=== PATIENT | male | born 1965 | race Caucasian/White ===

== ENCOUNTER 2018-08-15 14:05 | Inpatient (IN) | payer BC, OTHER ==
[2018-08-15] MEDS ORDERED: DILTIAZEM DRIP BOLUS FROM BAG 1 MG SOLN IV ONE (14:30)
[2018-08-15] MEDS ORDERED: SODIUM CHLORIDE 0.9% 500 ML 500 ML IV STA (14:30)
--- NOTE | 2018-08-15 14:33 | ED ---
General Adult HPI - General Chief complaint: Arrhythmia/Palpitations Stated complaint: Afib/Sent by PCP Time Seen by Provider: 08/15/18 14:05 Source: patient, RN notes reviewed Mode of arrival: ambulatory Limitations: no limitations - History of Present Illness Initial comments: This is a 52-year-old male who presents emergency department stating that he was at his primary medical care doctor's office today and they determined that he had new onset A. fib so they sent him into the emergency department immediately. Patient states he is short of breath on occasion but he assumes it secondary to the fact that he is a smoker and has some wheezing. Patient states he has had no chest pain he has not noticed his heart racing. Patient denies any swelling to the legs or calf tenderness. Patient denies any previous history of atrial fibrillation. Patient denies any heart disease in the past. Patient states he is a 6. A drinker. Patient denies any lightheadedness dizziness or near syncopal episode. - Related Data Home Medications Medication Instructions Recorded Confirmed Atorvastatin [Lipitor] 20 mg PO DAILY 08/15/18 08/15/18 Ergocalciferol (Vitamin D2) 50,000 unit PO Q7D 08/15/18 08/15/18 [Vitamin D2] Sildenafil Citrate [Viagra] 100 mg PO ONCE 08/15/18 08/15/18 Varenicline [Chantix Continuing 1 mg PO BID 08/15/18 08/15/18 Pack] amLODIPine BESYLATE/BENAZEPRIL 1 cap PO DAILY 08/15/18 08/15/18 [amLODIPine BESYLATE/BENAZEPRIL 5-20 mg] methylPREDNISolone Dose Pack See Taper PO DIRECTED 08/15/18 08/15/18 [Medrol Dose Pack] Allergies Allergy/AdvReac Type Severity Reaction Status Date / Time aspirin Allergy Rash/Hives Verified 08/15/18 15:03 Review of Systems ROS Statement: Those systems with pertinent positive or pertinent negative responses have been documented in the HPI. ROS Other: All systems not noted in ROS Statement are negative. Past Medical History Past Medical History: No Reported History History of Any Multi-Drug Resistant Organisms: None Reported Additional Past Surgical History / Comment(s): Throat operation Past Psychological History: No Psychological Hx Reported Smoking Status: Current every day smoker Past Alcohol Use History: Daily, Heavy Past Drug Use History: Marijuana General Exam - General Exam Comments Initial Comments: GENERAL: Patient is well-developed and well-nourished. Patient is nontoxic and well- hydrated and is in no acute distress. ENT: Neck is soft and supple. No significant lymphadenopathy is noted. Oropharynx is clear. Moist mucous membranes. Neck has full range of motion without eliciting any pain. EYES: The sclera were anicteric and conjunctiva were pink and moist. Extraocular movements were intact and pupils were equal round and reactive to light. Eyelids were unremarkable. PULMONARY: Patient has expiratory wheezing diffusely CARDIOVASCULAR: Patient is tachycardic with irregular heartbeat. ABDOMEN: Soft and nontender with normal bowel sounds. No palpable organomegaly was noted. There is no palpable pulsatile mass. SKIN: Skin is clear with no lesions or rashes and otherwise unremarkable. NEUROLOGIC: Patient is alert and oriented x3. Cranial nerves II through XII are grossly intact. Motor and sensory are also intact. Normal speech, volume and content. Symmetrical smile. MUSCULOSKELETAL: Normal extremities with adequate strength and full range of motion. No lower extremity swelling or edema. No calf tenderness. LYMPHATICS: No significant lymphadenopathy is noted PSYCHIATRIC: Normal psychiatric evaluation. Limitations: no limitations Course Vital Signs 08/15/18 08/15/18 14:09 15:25 Temperature 98.7 F Pulse Rate 64 99 Respiratory 18 16 Rate Blood Pressure 142/88 O2 Sat by Pulse 98 98 Oximetry Medical Decision Making - Medical Decision Making EKG shows atrial fibrillation with rapid ventricular response at 129 bpm NJ interval 220 QRS is 320 QTC is 468. Patient's EKG shows no ST segment elevation or depression or T wave abnormalities are noted Chest x-ray shows no acute abnormality. Patient's heart rate stayed around 100 after his initial presentations I didn't give him any Cardizem at this time. I did start heparin however. I spoke with Dr. Miranda. I admitted the patient I consult to cardiology - Lab Data Result diagrams: 08/15/18 14:30 08/15/18 14:30 Lab Results 08/15/18 08/15/18 08/15/18 Range/Units 14:30 14:30 14:30 WBC 8.0 (3.8-10.6) k/uL RBC 5.78 (4.30-5.90) m/uL Hgb 17.2 (13.0-17.5) gm/dL Hct 53.7 H (39.0-53.0) % MCV 92.9 (80.0-100.0) fL MCH 29.8 (25.0-35.0) pg MCHC 32.0 (31.0-37.0) g/dL RDW 12.6 (11.5-15.5) % Plt Count 213 (150-450) k/uL Neutrophils % 83 % Lymphocytes % 12 % Monocytes % 3 % Eosinophils % 1 % Basophils % 0 % Neutrophils # 6.6 (1.3-7.7) k/uL Lymphocytes # 0.9 L (1.0-4.8) k/uL Monocytes # 0.2 (0-1.0) k/uL Eosinophils # 0.1 (0-0.7) k/uL Basophils # 0.0 (0-0.2) k/uL PT (9.0-12.0) sec INR (<1.2) APTT (22.0-30.0) sec Sodium 139 (137-145) mmol/L Potassium 4.8 (3.5-5.1) mmol/L Chloride 106 (98-107) mmol/L Carbon Dioxide 23 (22-30) mmol/L Anion Gap 10 mmol/L BUN 28 H (9-20) mg/dL Creatinine 0.64 L (0.66-1.25) mg/dL Est GFR (CKD-EPI)AfAm >90 (>60 ml/min/1.73 sqM) Est GFR (CKD-EPI)NonAf >90 (>60 ml/min/1.73 sqM) Glucose 139 H (74-99) mg/dL Calcium 9.5 (8.4-10.2) mg/dL Magnesium 1.7 (1.6-2.3) mg/dL Total Bilirubin 0.5 (0.2-1.3) mg/dL AST 60 H (17-59) U/L ALT 72 (21-72) U/L Alkaline Phosphatase 150 H (38-126) U/L Total Creatine Kinase 214 H (55-170) U/L CK-MB (CK-2) 5.1 H (0.0-2.4) ng/mL CK-MB (CK-2) Rel Index 2.4 Troponin I <0.012 (0.000-0.034) ng/mL Total Protein 7.4 (6.3-8.2) g/dL Albumin 4.4 (3.5-5.0) g/dL TSH 0.487 (0.465-4.680) mIU/L Free T4 0.79 (0.78-2.19) ng/dL 08/15/18 Range/Units 14:30 WBC (3.8-10.6) k/uL RBC (4.30-5.90) m/uL Hgb (13.0-17.5) gm/dL Hct (39.0-53.0) % MCV (80.0-100.0) fL MCH (25.0-35.0) pg MCHC (31.0-37.0) g/dL RDW (11.5-15.5) % Plt Count (150-450) k/uL Neutrophils % % Lymphocytes % % Monocytes % % Eosinophils % % Basophils % % Neutrophils # (1.3-7.7) k/uL Lymphocytes # (1.0-4.8) k/uL Monocytes # (0-1.0) k/uL Eosinophils # (0-0.7) k/uL Basophils # (0-0.2) k/uL PT 10.6 (9.0-12.0) sec INR 1.1 (<1.2) APTT 25.3 (22.0-30.0) sec Sodium (137-145) mmol/L Potassium (3.5-5.1) mmol/L Chloride (98-107) mmol/L Carbon Dioxide (22-30) mmol/L Anion Gap mmol/L BUN (9-20) mg/dL Creatinine (0.66-1.25) mg/dL Est GFR (CKD-EPI)AfAm (>60 ml/min/1.73 sqM) Est GFR (CKD-EPI)NonAf (>60 ml/min/1.73 sqM) Glucose (74-99) mg/dL Calcium (8.4-10.2) mg/dL Magnesium (1.6-2.3) mg/dL Total Bilirubin (0.2-1.3) mg/dL AST (17-59) U/L ALT (21-72) U/L Alkaline Phosphatase (38-126) U/L Total Creatine Kinase (55-170) U/L CK-MB (CK-2) (0.0-2.4) ng/mL CK-MB (CK-2) Rel Index Troponin I (0.000-0.034) ng/mL Total Protein (6.3-8.2) g/dL Albumin (3.5-5.0) g/dL TSH (0.465-4.680) mIU/L Free T4 (0.78-2.19) ng/dL Disposition Clinical Impression: New onset atrial fibrillation Disposition: ADMITTED IP TO THIS HOSP Referrals: Jonnie Moore MD [Primary Care Provider] - 1-2 days Time of Disposition: 16:03
[2018-08-15 15:10] LABS: Basophils % (A) 0 %; Eosinophils # (A) 0.1 k/uL (0-0.7); Eosinophils % (A) 1 %; HCT 53.7 % (39.0-53.0); HGB 17.2 gm/dL (13.0-17.5); Lymphocytes # (A) 0.9 k/uL (1.0-4.8); Lymphocytes % (A) 12 %; MCH 29.8 pg (25.0-35.0); MCV 92.9 fL (80.0-100.0); Mean Platelet Volume 7.3; Monocytes # (A) 0.2 k/uL (0-1.0); Monocytes % (A) 3 %; Neutrophils # (A) 6.6 k/uL (1.3-7.7); Neutrophils % (A) 83 %; Platelet Count 213 k/uL (150-450); RBC 5.78 m/uL (4.30-5.90); RDW 12.6 % (11.5-15.5)
[2018-08-15 15:16] LABS: INR 1.1 (<1.2); Partial Thromboplastin Time 25.3 sec (22.0-30.0); Prothrombin Time 10.6 sec (9.0-12.0)
[2018-08-15] MEDS ORDERED: HEPARIN SODIUM,PORCINE 5,000 UNIT/ML 1 ML VIAL IV ONE (15:23)
[2018-08-15 15:24] LABS: ALT 72 U/L (21-72); AST 60 U/L (17-59); Albumin 4.4 g/dL (3.5-5.0); Alkaline Phosphatase 150 U/L (38-126); Anion Gap 10 mmol/L; Blood Urea Nitrogen 28 mg/dL (9-20); Calcium 9.5 mg/dL (8.4-10.2); Carbon Dioxide 23 mmol/L (22-30); Chloride 106 mmol/L (98-107); Glucose 139 mg/dL (74-99); Magnesium 1.7 mg/dL (1.6-2.3); Potassium 4.8 mmol/L (3.5-5.1); Sodium 139 mmol/L (137-145); Total Bilirubin 0.5 mg/dL (0.2-1.3); Total Protein 7.4 g/dL (6.3-8.2)
[2018-08-15] MEDS ORDERED: HEPARIN SOD,PORK IN 0.45% NACL 25,000 UNIT in 0.45% NACL 1 500ML.BAG IV SCH (15:30)
[2018-08-15 15:34] LABS: Creatine Kinase 214 U/L (55-170)
[2018-08-15 15:39] LABS: T4, Free (Free Thyroxine) 0.79 ng/dL (0.78-2.19)
[2018-08-15] MEDS: DILTIAZEM 50 MG in SODIUM CHLORIDE 0.9% 40 ML IV SCH (15:39)
--- NOTE | 2018-08-15 15:43 | XR ---
EXAMINATION TYPE: XR chest 2V DATE OF EXAM: 08/15/2018 COMPARISON: None INDICATION: Dysrhythmia TECHNIQUE: Frontal and lateral views of the chest are obtained. FINDINGS: The heart size is normal. The pulmonary vasculature is normal. The lungs are clear. IMPRESSION: 1. No acute pulmonary process.
[2018-08-15 15:47] LABS: Creatine Kinase MB 5.1 ng/mL (0.0-2.4); Troponin I <0.012 ng/mL (0.000-0.034)
[2018-08-15] MEDS ORDERED: NITROGLYCERIN SL TABS 0.4 MG TAB SUBLINGUAL PRN (16:03)
[2018-08-15 20:56] LABS: Creatine Kinase 276 U/L (55-170)
[2018-08-15 21:09] LABS: Creatine Kinase MB 4.8 ng/mL (0.0-2.4); Troponin I <0.012 ng/mL (0.000-0.034)
[2018-08-15] MEDS: VARENICLINE 1 MG TAB PO SCH (21:13)
[2018-08-15 23:45] LABS: Amphetamine Screen,Urine Not Detected (NotDetected); Barbiturate Screen,Urine Not Detected (NotDetected); Benzodiazepines Screen,Urine Not Detected (NotDetected); Cocaine Screen,Urine Not Detected (NotDetected); Methadone Screen, Urine Not Detected (NotDetected); Opiate Screen,Urine Not Detected (NotDetected); Oxycodone Screen, Urine Not Detected (NotDetected); Phencyclidine Screen,Urine Not Detected (NotDetected); Tricyclic Antidepressant,Urine Not Detected (NotDetected); Urn Cannabinoid Scrn Detected (NotDetected)
[2018-08-16] MEDS ORDERED: Magnesium Replacement Protocol 1 EACH MISC MISCELLANE PRN (02:43)
[2018-08-16] MEDS: DILTIAZEM 50 MG in SODIUM CHLORIDE 0.9% 40 ML IV SCH (02:44)
[2018-08-16] MEDS: MAGNESIUM SULFATE-D5W PMX 1 GM in DEXTROSE/WATER 1 100ML.BAG IVPB SCH ×2 (03:02→03:45)
[2018-08-16 03:23] LABS: Magnesium 1.7 mg/dL (1.6-2.3); Potassium 4.2 mmol/L (3.5-5.1)
[2018-08-16 03:35] LABS: Creatine Kinase 267 U/L (55-170)
[2018-08-16 03:46] LABS: Creatine Kinase MB 4.7 ng/mL (0.0-2.4); Troponin I <0.012 ng/mL (0.000-0.034)
[2018-08-16] MEDS ORDERED: amLODIPine 5 MG TAB PO SCH (09:00)
[2018-08-16] MEDS ORDERED: ASPIRIN 325 MG TAB PO SCH (09:00)
[2018-08-16] MEDS: LISINOPRIL 20 MG TAB PO SCH (10:10)
[2018-08-16] MEDS: APIXABAN 5 MG TAB PO SCH ×2 (10:11→20:25)
[2018-08-16] MEDS: METOPROLOL TARTRATE 25 MG TAB PO SCH ×2 (10:11→20:25)
[2018-08-16] MEDS: SPIRONOLACTONE 25 MG TAB PO SCH (10:11)
[2018-08-16] MEDS: FUROSEMIDE 20 MG TAB PO SCH ×2 (10:11→15:50)
[2018-08-16] MEDS: ATORVASTATIN 20 MG TAB PO SCH (10:11)
[2018-08-16] MEDS: VARENICLINE 1 MG TAB PO SCH ×2 (10:16→20:25)
--- NOTE | 2018-08-16 10:28 | CONS ---
CONSULTATION Mr. Rushing is a 52-year-old male with a history of hypertension, chronic tobacco use, chronic alcohol intake, hyperlipidemia, who yesterday was seen by his PCP because of bursitis in the right elbow and on examination was noted to be in atrial fibrillation. Patient is unaware of the palpitation and has not had any documented atrial fibrillation in the past, although no recent EKG were done. He is average in his exercise tolerance, has dyspnea on exertion. He has no palpitation. No chest pain. No peripheral edema. No PND, nor orthopnea. He had a stress test many years ago that was unremarkable. His coronary risk factors are remarkable for smoking up to 2 packs a day. He has a history of hypertension, hyperlipidemia. His mother had a myocardial infarction in her 60s. His social history, he drinks beer on a daily basis over a 6 pack. He smokes as noted. MEDICATION: Include amlodipine, benazepril 5-20 mg daily, Viagra on a p.r.n. basis, Lipitor 20 mg daily, and vitamin D. He was on methylprednisone Dosepak. REVIEW OF SYSTEMS: RESPIRATORY SYSTEM: He has no history of recent fever but he has history of obstructive lung disease, history of dyspnea on exertion. GI SYSTEM: No recent GI bleeding. No peptic ulcer disease. SYSTEM: No dysuria or hematuria. NERVOUS SYSTEM: No history of stroke or seizure. PHYSICAL EXAMINATION: He is a 52-year-old male, alert, oriented, in no apparent distress. Blood pressure 117/80 with a heart rate in the 80s. HEAD: Normocephalic. EYES: Sclerae nonicteric. NECK: Good upstroke, no bruit. LUNGS: With decreased air exchange with scattered wheezes. HEART: Irregular, regular. S1, S2. No S3. No gallop or rub appreciated. ABDOMEN: Soft, nontender, positive bowel sounds, no organomegaly. EXTREMITIES: No edema, intact distal pulses. LAB DATA: Revealed a BUN and creatinine of 28 and 0.64. Troponin less than 0.012. TSH of 4.87, cholesterol 131, LDL of 46, hemoglobin of 17.2. EKG revealed atrial fibrillation with a ventricular rate of 129 and left axis deviation. Cardiac showed inferior myocardial infarction. Chest x-ray revealed no acute infiltrate. IMPRESSION: 1. Atrial fibrillation of unknown duration, recently diagnosed patient is unaware of the arrhythmia. 2. History of hypertension. 3. Hyperlipidemia. 4. Chronic tobacco use. 5. Chronic alcohol intake. RECOMMENDATION: Preliminary report of his echocardiogram revealed a severely impaired left ventricular systolic function. I will review the results further. In the meantime, I initiate treatment with a beta juan. Continue on the LUIS MANUEL inhibitor. I will add to his regimen Aldactone as well as Lasix. I will switch him to oral anticoagulation. The importance of smoking and alcohol cessation was discussed with him. Depending on his progress, further recommendation will be made. Thank you for this consult. Will follow with you. WYATT / MERNAN: [id number] /
--- NOTE | 2018-08-16 10:36 | ECHOF ---
Referral Reason:New onset atrial fibrillation, formerly [facility], 1928–1983 MEASUREMENTS -------- HEIGHT: 182.9 cm WEIGHT: 93.0 kg BP: 117/85 RVIDd: 3.4 cm (< 3.3) IVSd: 1.1 cm (0.6 - 1.1) LVIDd: 5.4 cm (3.9 - 5.3) LVPWd: 1.1 cm (0.6 - 1.1) IVSs: 1.6 cm LVIDs: 4.2 cm LVPWs: 1.6 cm LA Diam: 4.5 cm (2.7 - 3.8) LAESV Index (A-L): 39.14 ml/m Ao Diam: 3.8 cm (2.0 - 3.7) AV Cusp: 2.3 cm (1.5 - 2.6) MV EXCURSION: 10.412 mm (> 18.000) MV EF SLOPE: 50 mm/s (70 - 150) EPSS: 2.2 cm RAP: 15.00 mmHg RVSP: 37.05 mmHg FINDINGS -------- Atrial fibrillation. This was a technically adequate study. The left ventricular size is normal. There is borderline concentric left ventricular hypertrophy. Overall left ventricular systolic function is severely impaired with, an EF between 20 - 25 %. The right ventricle is mildly enlarged. LA is moderately dilated 34-39 ml/m2 The right atrium is normal in size. There is mild aortic valve sclerosis. The mitral valve leaflets are mildly thickened. Mild mitral annular calcification present. Mild m itral regurgitation is present. Mild tricuspid regurgitation present. Right ventricular systolic pressure is normal at < 35 mmHg. CONCLUSIONS -------- 1. Atrial fibrillation. 2. This was a technically adequate study. 3. The left ventricular size is normal. 4. There is borderline concentric left ventricular hypertrophy. 5. Overall left ventricular systolic function is severely impaired with, an EF between 20 - 25 %. 6. The right ventricle is mildly enlarged. 7. LA is moderately dilated 34-39 ml/m2 8. The right atrium is normal in size. 9. There is mild aortic valve sclerosis. 10. The mitral valve leaflets are mildly thickened. 11. Mild mitral annular calcification present. 12. Mild mitral regurgitation is present. 13. Mild tricuspid regurgitation present. 14. Right ventricular systolic pressure is normal at < 35 mmHg. SHAREPOINT ADMIN: Jessy Street RDCS
[2018-08-16] MEDS ORDERED: MELATONIN 3 MG TABLET PO PRN (15:30)
[2018-08-16] MEDS ORDERED: ONDANSETRON 4 MG/2 ML VIAL IVP PRN (15:30)
[2018-08-16] MEDS ORDERED: MAGNESIUM HYDROXIDE 2,400 MG/10 ML CUP PO PRN (15:30)
[2018-08-16] MEDS ORDERED: LACTULOSE 20 GM/30 ML CUP PO PRN (15:30)
[2018-08-16] MEDS ORDERED: NALOXONE 0.4 MG/ML 1 ML VIAL IV PRN (15:30)
[2018-08-16] MEDS ORDERED: ACETAMINOPHEN TAB 325 MG TAB PO PRN (15:30)
[2018-08-16] MEDS ORDERED: ALPRAZolam 0.25 MG TAB PO PRN (15:30)
--- NOTE | 2018-08-16 16:22 | HP ---
HISTORY AND PHYSICAL DATE OF ADMISSION: 08/15/2018 DATE OF SERVICE: 08/16/2018 PRESENTING COMPLAINT: Tired. HISTORY OF PRESENTING COMPLAINT: This is a pleasant 52-year-old patient who follows with Dr. Moore. Chronic stable medical conditions include COPD, hypertension, hyperlipidemia, obstructive sleep apnea. The patient has right elbow bursitis and had gone to see Dr. Moore, his family doctor. His nurse practitioner came to see the patient and during the vitals and noted that the patient's heart rate was up. The patient was found to be in atrial fibrillation with a rapid ventricular rate. Patient was sent down to the hospital. Patient was started on IV heparin and on IV Cardizem. The patient was feeling at his baseline, which is occasionally short of breath; he felt this was because of his COPD. No palpitation. No dizziness. No lightheadedness. Patient is a long-standing smoker. REVIEW OF SYSTEMS: CONSTITUTIONAL: None. HEENT: None. RESPIRATORY: Baseline some shortness of breath, wheezing. CARDIOVASCULAR: None. GASTROINTESTINAL: None. GENITOURINARY: None. MUSCULOSKELETAL: Patient has some discomfort in the right elbow from his bursitis. DERMATOLOGICAL: None. HEMATOLOGIC None. LYMPHATICS: None. PSYCHIATRY: None. NEUROLOGICAL: None. PAST MEDICAL HISTORY: 1. COPD. 2. Hypertension. 3. Hyperlipidemia. 4. Obstructive sleep apnea. Patient never followed up. PAST SURGICAL HISTORY: Throat operation. SOCIAL HISTORY: The patient lives alone. 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 Has smoked a pack and a half a day for over 40 years. Drinks 4 to 6 beers per day. Marijuana sometimes. FAMILY HISTORY: Myocardial infarction. HOME MEDICATIONS: 1. Medrol Dosepak. 2. Amlodipine/benazepril 5/20 one tablet p.o. daily. 3. Chantix 1 mg p.o. b.i.d. 4. Viagra 100 mg p.r.n. 5. Vitamin D2 50,000 units every 7 days. 6. Lipitor 20 mg p.o. daily. ALLERGIES: ASPIRIN. PHYSICAL EXAMINATION: VITAL SIGNS ON PRESENTATION: Temperature 98.7, pulse 120, respiration 23, blood pressure 142/88, pulse ox 98% on room air. GENERAL APPEARANCE: Average build. Sitting up, not in distress. EYES: Pupils equal. Conjunctivae normal. HEENT: External appearance of nose and ears normal. Oral cavity normal. NECK: JVD not raised. Mass not palpable. RESPIRATORY: Effort normal. LUNGS: Slightly decreased breath sounds. Mild wheezing. CARDIOVASCULAR: Heart sounds irregular. No edema. ABDOMEN: Soft, non-tender. Liver and spleen not palpable. LYMPHATIC: No lymph node palpable in neck or axillae. PSYCHIATRY: Alert and oriented x3. Mood and affect normal. NEUROLOGICAL: Pupils equal. Cranial nerves grossly intact. Power and sensation grossly intact. MUSCULOSKELETAL: Slight inflammation of the right olecranon bursa. INVESTIGATIONS: White count 8, hemoglobin 17.2, potassium 4.8, BUN 28, creatinine 0.84. Troponin I is less than 0.012 x3. TSH 0.487, free T4 0.79. Urine drug screen positive for marijuana. INVESTIGATIONS: Two-D echo, EF 20% to 25%. LA is moderately dilated. EKG shows atrial fibrillation with rapid ventricular rate and also underlying flutter rhythm. Chest x-ray film, personally reviewed by me, shows cardiomegaly. Lung barillas are clear. EKG was also personally reviewed by me. ASSESSMENT: 1. Persistent atrial fibrillation, probably long-standing, diagnosed on a routine checkup. Initially on IV Cardizem. 2. Dilated cardiomyopathy; could be arrhythmia-related. Cannot rule out underlying ischemia. 3. Chronic obstructive pulmonary disease in a current smoker. 4. Chronic nicotine dependence. Patient is a cigarette smoker. 5. Right elbow olecranon bursitis. PLAN: Patient is currently on Eliquis, Lipitor, p.o. Lasix, LUIS MANUEL inhibitor, Lopressor Aldactone, Chantix. Will also add nebulized bronchodilator, inhaled steroids. Cardiology was consulted. Care was discussed with the patient. Smoking cessation counseling was done. Patient was started on the Chantix. More than 3 minutes was spent on this aspect of the case. MMODL / IJN: [id number] /
[2018-08-16] MEDS: IPRATROPIUM-ALBUTEROL 3 ML NEB INHALATION SCH ×2 (16:51→21:02)
[2018-08-16] MEDS: DICLOFENAC SODIUM GEL 100 GM TUBE TOPICAL SCH ×2 (17:34→20:26)
[2018-08-16] MEDS: BUDESONIDE 1 MG/2 ML NEBU INHALATION SCH (21:02)
[2018-08-17 07:34] VITALS: RESP 18
[2018-08-17] MEDS: LISINOPRIL 20 MG TAB PO SCH (07:47)
[2018-08-17] MEDS: ATORVASTATIN 20 MG TAB PO SCH (07:47)
[2018-08-17] MEDS: APIXABAN 5 MG TAB PO SCH (07:47)
[2018-08-17] MEDS: SPIRONOLACTONE 25 MG TAB PO SCH (07:47)
[2018-08-17] MEDS: METOPROLOL TARTRATE 25 MG TAB PO SCH (07:47)
[2018-08-17] MEDS: FUROSEMIDE 20 MG TAB PO SCH (07:48)
[2018-08-17] MEDS: DICLOFENAC SODIUM GEL 100 GM TUBE TOPICAL SCH ×2 (07:48→13:30)
[2018-08-17] MEDS: VARENICLINE 1 MG TAB PO SCH (07:50)
[2018-08-17] MEDS: MAGNESIUM SULFATE-D5W PMX 1 GM in DEXTROSE/WATER 1 100ML.BAG IVPB SCH ×2 (08:40→09:40)
[2018-08-17] MEDS: IPRATROPIUM-ALBUTEROL 3 ML NEB INHALATION SCH ×2 (08:51→12:00)
[2018-08-17] MEDS: BUDESONIDE 1 MG/2 ML NEBU INHALATION SCH (08:51)
--- NOTE | 2018-08-17 11:31 | P.PN ---
Subjective Progress Note Date: 08/17/18 This is a 52-year-old gentleman with known history of hypertension, chronic tobacco use, chronic alcohol intake, hyperlipidemia, who was seen in consultation by Dr. Hauser, patient was noted to be in atrial fibrillation, he was also noted to have a reduced ejection fraction for which medication adjustments have been made. Patient was seen and examined this morning, states he feels well overall, he is quite eager to be discharged home today. Hemodynamically he is stable. Magnesium this morning is 1.6 which I have replaced. Objective - Vital Signs Vital signs: Vital Signs Temp 98.4 F 08/17/18 04:15 Pulse 72 08/17/18 09:05 Resp 18 08/17/18 07:33 BP 138/98 08/17/18 07:33 Pulse Ox 91 L 08/17/18 07:33 Intake & Output 08/16/18 08/17/18 08/17/18 18:59 06:59 18:59 Intake Total 831.858 490 420 Output Total 1200 600 Balance -368.142 490 -180 Weight 90 kg Intake: IV 30 10 0.9 10 Invasive Line 1 20 Invasive Line 2 10 Intake, IV Titration 301.858 Amount Heparin Sod,Pork in 0.45% 301.858 NaCl 25,000 unit In 0.45 % NaCl 1 500ml.bag @ 10. 55 UNITS/KG/HR 20 mls/hr IV .Q24H [facility] Rx#: [id number] Oral 500 480 420 Output: Urine 1200 600 Other: Voiding Method Toilet Toilet Urinal Urinal # Voids 3 - Exam PHYSICAL EXAMINATION: GENERAL: 52-year-old gentleman in no acute distress at the time of my examination HEENT: Head is atraumatic, normocephalic. Pupils equal, round. Sclera anicteric. Conjunctiva are clear. Mucous membranes of the mouth are moist. Neck is supple. There is no elevated jugular venous pressure. No carotid bruit is heard. HEART EXAMINATION: Heart S1, S2 normal. No murmur or gallop heard. CHEST EXAMINATION: Lungs are clear to auscultation and precussion. No chest wall tenderness is noted on palpation or with deep breathing. ABDOMEN: Soft, nontender. Bowel sounds are heard. No organomegaly noted. EXTREMITIES: 2+ peripheral pulses with no evidence of peripheral edema and no calf tenderness noted. NEUROLOGIC patient is awake, alert and oriented 3 . . - Labs CBC & Chem 7: 08/15/18 14:30 08/16/18 02:55 Assessment and Plan Plan: Assessment and plan #1 atrial fibrillation, chronic persistent, unknown duration, on Eliquis for anticoagulation #2 hypertension #3 hyperlipidemia #4 chronic tobacco use #5 EtOH use #6 cardiomyopathy of unknown cause Plan From cardiology's perspective, patient may be able to be discharged home today. He will need an outpatient workup and to rule out underlying coronary artery disease. He will continue with his current medications that he is on at this time. Follow-up appointment with Dr. Hauser in the office post discharge. DNP note has been reviewed, I agree with a documented findings and plan of care. Patient was seen and examined.
[2018-08-17 11:38] VITALS: BP 131/85; TEMP 97
[2018-08-17 12:12] VITALS: PULSE 75
--- NOTE | 2018-08-17 21:56 | DS ---
DISCHARGE SUMMARY DATE OF ADMISSION: 08/15/2018 DATE OF DISCHARGE: 08/17/2018. FINAL DIAGNOSES: 1. Persistent atrial fibrillation, probably long-standing uncontrolled on presentation. 2. Dilated cardiomyopathy could be arrhythmia related. Cannot rule out underlying ischemia. 3. Chronic obstructive pulmonary disease in a current smoker. 4. Chronic nicotine dependence, patient is a cigarette smoker. 5. Right elbow olecranon bursitis. HOSPITAL COURSE: This patient has gone to see his doctor for right elbow olecranon bursitis, found to be in atrial fibrillation, uncontrolled, had no symptoms from the same. Initially was put on IV heparin, Cardizem. Rate was better controlled by the time of discharge. Put on anticoagulation. 2D echocardiogram showed EF of 20-25 percent and left atrium was dilated. Heart rate was better controlled by the time of discharge. The patient is counseled against smoking. The patient was counseled both about smoking and alcohol for complete cessation. The patient will probably need a cardiac catheterization by Outpatient to rule out ischemia component of the cardiomyopathy. PHYSICAL EXAMINATION: On examination temperature 97, pulse 96, respiratory 18, blood pressure 113/85, pulse ox 95% on room air. Lungs decreased breath sounds. Cardiovascular: Heart sounds irregular. The patient LDL is 46. Urine drug screen positive for marijuana which patient uses recreationally. CONSULTATION: Dr. Hauser from Cardiology. DISCHARGE MEDICATION: 1. Lipitor 20 mg a day. 2. Chantix 1 mg p.o. b.i.d. 3. Ventolin HFA 1-2 puffs q.6h p.r.n. 4. Eliquis 5 mg p.o. b.i.d. 5. Voltaren gel 2 g topical q.i.d. in the right elbow. 6. Lasix 20 mg p.o. daily. 7. Atrovent HFA 2 puffs t.i.d. 8. Lopressor 25 mg p.o. b.i.d. 9. Aldactone 25 mg p.o. daily. FOLLOW: Dr. Hauser on 08/23/2018, follow up with Dr. Jonnie Moore in [address] Moore. MMODL / MERNAN: [id number] /
== END 2018-08-17 15:19 | disposition home or self-care (01) | DRG 310 ==
LOC: EC 14:05 → 3SCARD 16:04
PROVIDERS: ADMIT Hospitalist; ATTEND Hospitalist
DX: I48.1 Persistent atrial fibrillation (principal); E78.5 Hyperlipidemia, unspecified; F17.210 Nicotine dependence, cigarettes, uncomplicated; G47.33 Obstructive sleep apnea (adult) (pediatric); I10 Essential (primary) hypertension; I42.0 Dilated cardiomyopathy; J44.9 Chronic obstructive pulmonary disease, unspecified; M70.21 Olecranon bursitis, right elbow; Z79.899 Other long term (current) drug therapy; Z88.6 Allergy status to analgesic agent; Z71.6 Tobacco abuse counseling; Z82.49 Family history of ischemic heart disease and other diseases of the circulatory system
CPT/HCPCS: 36415; 71046; 80053; 80061; 80306; 82550; 82553; 83735; 83880; 84132; 84439; 84443; 84484; 85025; 85610; 85730; 93005; 93306; 94640; 96365; 96366; 96376; 99285

== ENCOUNTER → 2018-09-02 | Day surgery (SDC) | payer OTHER ==
[2018-08-28 16:10] VITALS: BMI 27.1
[~2018-09-02] MED LIST: ALPRAZolam 0.25 MG TAB PO PRN; ALPRAZolam 0.5 MG TAB PO PRN; ATORVASTATIN 20 MG TAB PO SCH; ATORVASTATIN 80 MG TAB PO ONE; DICLOFENAC SODIUM GEL 100 GM TUBE TOPICAL SCH; FUROSEMIDE 20 MG TAB PO SCH; HEPARIN SODIUM 1,000 UN/ML (10ML VL) IV ONE; IOPAMIDOL-370 125ML BTL INJ ONE; IPRATROPIUM 0.5 MG/2.5 ML NEBU INHALATION SCH; LIDOCAINE 1% INJ 10MG/ML (20 ML MDV) ONE; LIDOCAINE 1% INJ 10MG/ML (20 ML MDV) SQ ONE; LISINOPRIL 5 MG TAB PO SCH; METOPROLOL TARTRATE 25 MG TAB PO SCH; MIDAZOLAM 2 MG/2 ML VIAL IV ONE; MIDAZOLAM 2 MG/2 ML VIAL ONE; NITROGLYCERIN SL TABS 0.4 MG TAB SUBLINGUAL PRN; RX INFO: IV CONTRAST WAS GIVEN 1 EACH MISC MISCELLANE PRN; SODIUM CHLORIDE 0.9% 1,000 ML IV ONE; SODIUM CHLORIDE 0.9% 1,000 ML IV SCH; SODIUM CHLORIDE 0.9% 1,000 ML in EMPTY BAG 1 BAG IV ONE; SPIRONOLACTONE 25 MG TAB PO SCH; VERAPAMIL 2.5 MG/ML 2 ML AMP ONE; VERAPAMIL SYRINGE (5 MG/10 ML) INTRAARTER ONE; fentaNYL (PF) 50 MCG/ML 2 ML AMP IV ONE; fentaNYL (PF) 50 MCG/ML 2 ML AMP ONE
[2018-09-02 07:20] VITALS: RESP 16; TEMP 97.7
[2018-09-02 08:31] LABS: O2 Sat Blood Gas 95.5 %
[2018-09-02 08:32] LABS: O2 Sat Blood Gas 69.5 %
[2018-09-02 08:32] LABS: O2 Sat Blood Gas 35.4 %
--- NOTE | 2018-09-02 09:09 | CC ---
CARDIAC CATHETERIZATION REPORT Mr. Rushing is a 52-year-old male who presented with symptoms of dyspnea, CHF, was found to have severe cardiomyopathy in atrial fibrillation of unknown duration. He was treated medically and made electively to undergo cardiac catheterization to further evaluate the etiology of his cardiomyopathy. The procedures, risks and complications were discussed with the patient who is in full understanding and agreement. PROCEDURE: Patient was brought to dental lab technician in a fasting semi-sedated state after receiving fentanyl and Benadryl and achieving moderate conscious sedated state. Using Xylocaine anesthesia and Seldinger technique, a 6-[place] sheath was introduced in the right radial artery. Subsequently, using a guidewire exchange technique, the right basilic vein intravenous catheter was exchanged with a 6-[place] sheath. Following that, a [place]- Alysa catheter was introduced and right heart catheterization was performed with obtaining multiple samples and pressures measurement. Following that, selective right and left coronary angiography were performed using 5-[place] 3.5 bend right and left Lenore catheter, multiple views of the coronary artery including hemiaxial views obtained. Following that, a 5-[place] tight pigtail catheter was introduced in the left ventricle and a 30 degree LOERA view of the left ventricle was obtained. Following that, the catheter and sheath were removed. Hemostasis was obtained with deployment of TR band on the right radial artery and compression of the right basilic vein. There was no immediate complication. Patient was returned to his room in stable condition. Of note, patient received 5000 units of intravenous heparin as well as intra-arterial verapamil. FINDINGS: HEMODYNAMICS: Right atrial saturation 96%, pulmonary saturation of 70%. Pulmonary artery systolic pressure of 30 with a diastolic of 16 with a mean of 18 mmHg. Pulmonary capillary wedge pressure V-wave of 16 with a mean of 60 mmHg. Right ventricle systolic pressure of 26-30 with an end-diastolic of 6-8 mmHg. Right atrium, V-wave of 6 and a mean of 7 mmHg. There was no gradient across the aortic valve. The left ventricular end-diastolic pressure was 14-16 mmHg. CORONARIES: LEFT MAIN: This is a large-sized vessel, bifurcating into left circumflex, left anterior descending artery, left main coronary artery without any obstructive coronary artery disease. LEFT ANTERIOR DESCENDING ARTERY: This is a large-sized vessel reaching toward the apex, tapers down distal third, giving rise to a large diagonal branch proximally. The left anterior descending artery as well as branches have no evidence of obstructive coronary artery disease. LEFT CIRCUMFLEX: This is a nondominant vessel, giving rise to 3 obtuse marginal branch. The left circumflex as well as its branches have no evidence of obstructive coronary artery disease. RIGHT CORONARY ARTERY: This is a large dominant vessel. The right PDA reaches toward the inferoapical wall. The mid right coronary artery is heavily calcified. There is a an area of stenosis up to 20%. The rest of the vessel has no high-grade stenosis. The mid right coronary artery gives the impression of a prior ruptured plaque. LEFT VENTRICULOGRAM: Left ventriculogram was performed in 30-degree LOERA view and revealed a global hypokinesis with ejection fraction of 25%-30%. There was no significant mitral regurgitation. CONCLUSION: 1. Calcified mid right coronary artery with mild obstructive coronary artery disease. 2. Severely impaired left ventricular systolic function. 3. No evidence of significant pulmonary hypertension. RECOMMENDATION: Those findings are consistent with nonischemic cardiomyopathy. I will continue with aggressive medical therapy and then attempt to cardiovert him to restore sinus mechanism. Those findings and recommendation were discussed with the patient and his family who are in full understanding and agreement. Duration of the procedure: 42 minutes. MMODL / IJN: [id number] /
[2018-09-02 17:36] VITALS: BP 137/84; PULSE 101
== END | disposition home or self-care (01) ==
LOC: CATHCVL 06:31
PROVIDERS: ATTEND Internal Medicine Interventional Cardiology
DX: I25.10 Atherosclerotic heart disease of native coronary artery without angina pectoris (principal); I42.0 Dilated cardiomyopathy; I48.1 Persistent atrial fibrillation; E78.2 Mixed hyperlipidemia; I10 Essential (primary) hypertension; F17.210 Nicotine dependence, cigarettes, uncomplicated; Z79.01 Long term (current) use of anticoagulants; Z79.899 Other long term (current) drug therapy; Z79.1 Long term (current) use of non-steroidal anti-inflammatories (NSAID); Z82.49 Family history of ischemic heart disease and other diseases of the circulatory system; Z88.6 Allergy status to analgesic agent; Z91.09 Other allergy status, other than to drugs and biological substances
CPT/HCPCS: 93460; 85018; 82810; C1894 ×3; C1751; C1769 ×2; J2250; J2001; J3010; J1644; Q9967

== ENCOUNTER → 2018-09-17 | Outpatient (CLI) | payer OTHER ==
[2018-09-17 17:01] LABS: HCT 53.5 % (39.0-53.0); HGB 18.4 gm/dL (13.0-17.5); MCH 31.1 pg (25.0-35.0); MCHC 34.4 g/dL (31.0-37.0); MCV 90.4 fL (80.0-100.0); Mean Platelet Volume 7.5; Platelet Count 173 k/uL (150-450); RBC 5.92 m/uL (4.30-5.90); RDW 12.7 % (11.5-15.5); WBC 6.2 k/uL (3.8-10.6)
[2018-09-17 17:14] LABS: Anion Gap 8 mmol/L; Blood Urea Nitrogen 26 mg/dL (9-20); Carbon Dioxide 30 mmol/L (22-30); Chloride 103 mmol/L (98-107); Potassium 4.7 mmol/L (3.5-5.1); Sodium 141 mmol/L (137-145)
== END | disposition home or self-care (01) ==
LOC: LABWHC1 16:15
PROVIDERS: ATTEND Internal Medicine Interventional Cardiology
DX: Z01.812 Encounter for preprocedural laboratory examination (principal); I25.10 Atherosclerotic heart disease of native coronary artery without angina pectoris; I48.1 Persistent atrial fibrillation
CPT/HCPCS: 36415; 80051; 82565; 84520; 85027

== ENCOUNTER 2018-09-24 07:59 | Day surgery (SDC) | payer OTHER ==
[2018-09-20 09:46] VITALS: BMI 27.8
[~2018-09-24 07:59] MED LIST changes: -ALPRAZolam 0.25 MG TAB PO PRN; -ALPRAZolam 0.5 MG TAB PO PRN; -ATORVASTATIN 20 MG TAB PO SCH; -ATORVASTATIN 80 MG TAB PO ONE; -DICLOFENAC SODIUM GEL 100 GM TUBE TOPICAL SCH; -FUROSEMIDE 20 MG TAB PO SCH; -HEPARIN SODIUM 1,000 UN/ML (10ML VL) IV ONE; -IOPAMIDOL-370 125ML BTL INJ ONE; -IPRATROPIUM 0.5 MG/2.5 ML NEBU INHALATION SCH; -LIDOCAINE 1% INJ 10MG/ML (20 ML MDV) ONE; -LIDOCAINE 1% INJ 10MG/ML (20 ML MDV) SQ ONE; -LISINOPRIL 5 MG TAB PO SCH; -METOPROLOL TARTRATE 25 MG TAB PO SCH; -MIDAZOLAM 2 MG/2 ML VIAL IV ONE; -MIDAZOLAM 2 MG/2 ML VIAL ONE; -NITROGLYCERIN SL TABS 0.4 MG TAB SUBLINGUAL PRN; -RX INFO: IV CONTRAST WAS GIVEN 1 EACH MISC MISCELLANE PRN; -SODIUM CHLORIDE 0.9% 1,000 ML IV ONE; -SODIUM CHLORIDE 0.9% 1,000 ML in EMPTY BAG 1 BAG IV ONE; -SPIRONOLACTONE 25 MG TAB PO SCH; -VERAPAMIL 2.5 MG/ML 2 ML AMP ONE; -VERAPAMIL SYRINGE (5 MG/10 ML) INTRAARTER ONE; -fentaNYL (PF) 50 MCG/ML 2 ML AMP IV ONE; -fentaNYL (PF) 50 MCG/ML 2 ML AMP ONE
[2018-09-24 08:19] VITALS: TEMP 98.4
[2018-09-24] MEDS: BENZOCAINE SPRAY 1 CAN MUCOUS MEM ONE ×2 (08:50→09:59)
[2018-09-24] MEDS ORDERED: PROPOFOL 10 MG/ML 20 ML VIAL IV ONE (08:52)
[2018-09-24] MEDS ORDERED: MIDAZOLAM 2 MG/2 ML VIAL ONE (08:52)
[2018-09-24] MEDS ORDERED: IV FLUID CONTINUATION 1,000 ML IV ONE (08:54)
[2018-09-24] MEDS ORDERED: SODIUM CHLORIDE 0.9% 1,000 ML IV SCH (09:30)
--- NOTE | 2018-09-24 09:54 | CE ---
CARDIAC ELECTROPHYSIOLOGY REPORT CARDIOVERSION PROCEDURE NOTE: INDICATION: Atrial fibrillation. PROCEDURE: After explaining the procedure to the patient as well as risks and the complications, his blood pressure, heart rate, O2 saturation was monitored and after obtaining a transesophageal echocardiogram and obtaining sedated state, a synchronized biphasic 200, 300 and 360 joules were performed without any ability to restore sinus mechanism. There was no immediate complication. WYATT / MERNAN: [id number] /
--- NOTE | 2018-09-24 09:54 | ECHOT ---
TRANSESOPHAGEAL ECHOCARDIOGRAM INDICATION: Evaluation of atrial fibrillation. PROCEDURE: After explaining the procedure to the patient as well as risks and complications, blood pressure, heart rate, O2 saturation were monitored. The throat was sprayed with Cetacaine. He received sedation per anesthesia department. The probe was introduced esophagus without difficulty. Images were obtained. Following that, the probe was removed. There was no immediate complication. FINDINGS: Left atrial size is dilated. Left atrial appendage is normal. There was evidence of spontaneous contrast. The left ventricular size is normal. There is evidence of global hypokinesis with an ejection fraction of 20% to 25%. The aortic valve revealed mild fibrocalcific change of the aortic cusp with preserved opening. Mitral valve appears to be normal. Tricuspid valve is normal. Descending thoracic aorta appears to be normal. No pericardial effusion was noted. Doppler pulse wave and color Doppler obtained and revealed a mild mitral and tricuspid regurgitation. There was no shunting across the interatrial septum. CONCLUSION: 1. Dilated left atrium with normal appearance of left atrial appendage with spontaneous contrast. 2. Normal left ventricular size with severe global hypokinesis. 3. Mild aortic sclerosis with no evidence of stenosis. 4. Mild mitral and tricuspid regurgitation. 5. No evidence of shunting across the interatrial septum by contrast bubble study or color Doppler study. 6. Normal appearance of the descending thoracic aorta. 7. No pericardial effusion was noted. MMODL / IJN: [id number] /
[2018-09-24 10:24] VITALS: PULSE 100
[2018-09-24 11:28] VITALS: BP 162/74; RESP 18
[2018-09-24] MEDS ORDERED: LISINOPRIL 2.5 MG TAB PO SCH (21:00)
[2018-09-24] MEDS ORDERED: METOPROLOL TARTRATE 25 MG TAB PO SCH (21:00)
[2018-09-24] MEDS ORDERED: APIXABAN 5 MG TAB PO SCH (21:00)
[2018-09-25] MEDS ORDERED: SPIRONOLACTONE 25 MG TAB PO SCH (09:00)
[2018-09-25] MEDS ORDERED: ATORVASTATIN 20 MG TAB PO SCH (09:00)
[2018-09-25] MEDS ORDERED: FUROSEMIDE 20 MG TAB PO SCH (09:00)
== END 2018-09-24 11:00 | disposition home or self-care (01) ==
LOC: CATHCVL 07:59
PROVIDERS: ATTEND Internal Medicine Interventional Cardiology
DX: I48.1 Persistent atrial fibrillation (principal); I08.3 Combined rheumatic disorders of mitral, aortic and tricuspid valves; I42.9 Cardiomyopathy, unspecified; I25.10 Atherosclerotic heart disease of native coronary artery without angina pectoris; E78.2 Mixed hyperlipidemia; I10 Essential (primary) hypertension; F17.210 Nicotine dependence, cigarettes, uncomplicated; Z79.01 Long term (current) use of anticoagulants; Z79.899 Other long term (current) drug therapy; Z88.6 Allergy status to analgesic agent; Z88.8 Allergy status to other drugs, medicaments and biological substances; Z82.49 Family history of ischemic heart disease and other diseases of the circulatory system
CPT/HCPCS: 93312; 93320; 93325; 92960; J2250; J2704

== ENCOUNTER → 2018-12-09 | Outpatient (CLI) | payer OTHER ==
[2018-12-09 17:04] LABS: HGB 17.4 gm/dL (13.0-17.5); MCHC 34.2 g/dL (31.0-37.0); MCV 90.6 fL (80.0-100.0); Mean Platelet Volume 7.6; Platelet Count 210 k/uL (150-450); RBC 5.63 m/uL (4.30-5.90); WBC 5.7 k/uL (3.8-10.6)
[2018-12-09 17:27] LABS: Anion Gap 9 mmol/L; Blood Urea Nitrogen 30 mg/dL (9-20); Carbon Dioxide 24 mmol/L (22-30); Chloride 107 mmol/L (98-107); Glucose 91 mg/dL (74-99); Potassium 4.4 mmol/L (3.5-5.1); Sodium 140 mmol/L (137-145)
== END | disposition home or self-care (01) ==
LOC: LABPAT 16:28
PROVIDERS: ATTEND Internal Medicine Clinical Cardiac Electrophysiology
DX: Z01.812 Encounter for preprocedural laboratory examination (principal); I42.8 Other cardiomyopathies; I48.1 Persistent atrial fibrillation
CPT/HCPCS: 36415; 80051; 82565; 82947; 84520; 85027

== ENCOUNTER 2018-12-17 07:04 | Day surgery (SDC) | payer OTHER ==
[2018-12-17] MEDS: SODIUM CHLORIDE 0.9% 1,000 ML IV SCH (07:21)
[2018-12-17] MEDS ORDERED: PROPOFOL 10 MG/ML 20 ML VIAL IV ONE (08:22)
[2018-12-17] MEDS ORDERED: fentaNYL (PF) 50 MCG/ML 2 ML AMP ONE (08:22)
[2018-12-17] MEDS ORDERED: HEPARIN SODIUM,PORCINE 10,000 UNIT/ML 1 ML VIAL ONE (08:22)
[2018-12-17] MEDS ORDERED: PHENYLEPHRINE-0.9% NACL SYG 1 MG/10 ML SYRINGE ONE (08:22)
[2018-12-17] MEDS ORDERED: MIDAZOLAM 2 MG/2 ML VIAL ONE (08:22)
[2018-12-17] MEDS ORDERED: SUCCINYLCHOLINE CHLORIDE 100 MG/5 ML SYR IV ONE (08:22)
[2018-12-17] MEDS ORDERED: LIDOCAINE 1% INJ 10MG/ML (20 ML MDV) ONE (08:56)
[2018-12-17] MEDS ORDERED: LIDOCAINE 1% INJ 10MG/ML (20 ML MDV) SQ ONE (09:05)
[2018-12-17] MEDS ORDERED: HEPARIN SOD,PORK IN 0.45% NACL 25,000 UNIT in 0.45% NACL 1 250ML.BAG IV ONE (09:05)
[2018-12-17] MEDS ORDERED: IOPAMIDOL-370 100ML BTL INJ ONE (10:58)
[2018-12-17] MEDS ORDERED: LACTATED RINGERS 1,000 ML IV ONE (11:13)
[2018-12-17] MEDS ORDERED: HYDROcodone/APAP 5-325MG 1 EACH TAB PO PRN (11:31)
[2018-12-17] MEDS ORDERED: ACETAMINOPHEN TAB 325 MG TAB PO PRN (11:31)
--- NOTE | 2018-12-17 11:49 | P.PCN ---
Preoperative Diagnosis: Diagnosis Atrial fibrillation, symptomatic, refractory to therapy Persistent Associated cardiomyopathy Result Successful pulmonary vein isolation of all veins using cryo-ablation Complete entrance block in all 4 veins confirmed Linear ablation along the left atrial roof No evidence for phrenic nerve injury Esophageal deflection YES Electrical cardioversion with a synchronized shock across the chest YES Procedure details Patient was brought to the EP lab in a fasting state. Written informed consent was obtained prior to the procedure. Procedure performed under general anesthesia After initial muscle relaxant use, muscle relaxants were not given thereafter in order to assess phrenic nerve during procedure. Patient prepped and draped as per protocol Full cryo-set up with standard preparation of the cryoablation tools done. Femoral Venous access obtained on the right and left groins Venous and arterial Sheaths placed. Diagnostic catheters for the high right atrium, phrenic nerve stimulation and pacing, His bundle, RV and coronary sinus placed Intracardiac echo catheter placed. Long sheath placed in the right atrium Left and right transseptal catheterization performed under intracardiac echo guidance. Intravenous heparin with aCT above 300 Later, catheter positioning and balloon positioning in the left atrium, under intracardiac echo guidance Diagnostic EP study with Coronary sinus pacing and recording Baseline measurements AH 65, HV 56 Normal TN narrow QRS Sinus cycle length 800 ms Atrial pacing performed from the high right atrium and the coronary sinus RV pacing VA Wenckebach block 500 ms AV node Wenckebach block from the high right atrium 350 ms AV node Wenckebach block from the Cuate sinus 330 ms Sinus node recovery times at 504 100 ms were 982 and 1978 ms respectively Transseptal catheterization performed RA pressure 16/12/14 LA pressure 19/11/15 Transseptal catheterization performed with standard sheath. The cryoablation sheath was then placed with an over the wire exchange without any acute complications. All 4 pulmonary veins were isolated in the following sequence: Left superior followed by left inferior followed by right superior followed by right inferior The cryo-ablation balloon was placed at the os of each vein 1.5 mL of IV dye was injected to confirm an occluded vein Goal during cryoablation was to achieve complete occlusion of the pulmonary vein , achieve -30C at 30 seconds and achieve -40C at 60 seconds and a time to affect of less than 60-90 seconds, . If not the balloon was repositioned to obtain this result After completion of Cryoblation with durations from 180-240 seconds, entrance block was confirmed with the Attain circular catheter in a roving fashion around the antrum of the pulmonary veins Phrenic nerve pacing was performed from the SVC, right innominate vein area and diaphragm voltage was monitored. Diaphragmatic contractions were also monitored manually for strength of contraction. Parameter goals for each cryo freeze -30 C by 30 seconds -40 degrees C by 60 seconds Minimum between minus 40-55C Thaw time greater than 10 seconds Balloon visualized by intracardiac echo The esophagus was intubated. Esophageal Temperature monitoring with a CIRCA catheter formed. Esophageal deflection for hypothermia of the esophagus below 32C Left superior pulmonary vein 2 Cryoblation's 2 minutes followed by 3 minutes Complete isolation with entrance block Left inferior pulmonary vein Single four-minute cryoablation complete isolation, entrance block Right superior pulmonary vein, during phrenic nerve pacing Single cryoablation for 4 minutes, complete isolation, entrance block Right inferior pulmonary vein, during phrenic nerve pacing Single cryoablation for 4 minutes, complete isolation Linear ablation with cryo balloon along the roof multiple Cryoblation's for 90-120 seconds each At the end of the procedure the Achieve catheter was once again used to check for entrance block Phrenic nerve stimulation was performed to confirm diaphragmatic stimulation the end of the procedure Cine fluoroscopy was performed at the very end of the procedure to confirm movement of both diaphragms with inspiration and expiration At the end of the procedure the patient was extubated Heparin was reversed Venous sheaths were removed and hemostasis assured Procedures performed (PVI - CRYO Ablation) Invasive hemodynamic monitoring while general anesthesia, right femoral arterial line for monitoring and sampling Diagnostic EP study CS pacing and recording Left and right transseptal catheterization Catheter the mapping of the tachycardia (NOT 3D mapping) Intracardiac echocardiography Pulmonary vein isolation with transseptal and comprehensive EPS, 12902 Linear ablation along the left atrial roof, 66333 Electrical cardioversion with a synchronized shock across the chest 63938 Anesthesia: GETA Condition: stable
[2018-12-17] MEDS ORDERED: ACETAMINOPHEN IV (For NPO) 1,000 MG in EMPTY BAG 1 BAG IVPB ONE (12:00)
[2018-12-17 12:51] VITALS: BMI 27.8
[2018-12-17] MEDS: COLCHICINE 0.6 MG EACH PO SCH (16:58)
[2018-12-17] MEDS ORDERED: INFLUENZA VACCINE (6 MOS+) 60 MCG/0.5 ML SYRINGE IM ONE (17:53)
[2018-12-17] MEDS ORDERED: PNEUMOCOCCAL VACC-PNEUMOVAX 23 25 MCG/0.5 ML VIAL IM ONE (17:53)
[2018-12-17] MEDS: APIXABAN 5 MG TAB PO SCH (20:24)
[2018-12-17] MEDS: METOPROLOL TARTRATE 25 MG TAB PO SCH (20:25)
[2018-12-17] MEDS: LISINOPRIL 5 MG TAB PO SCH (20:25)
[2018-12-17] MEDS ORDERED: ALBUTEROL NEBULIZED 2.5 MG/3 ML INHALATION PRN (20:34)
[2018-12-17] MEDS ORDERED: ATORVASTATIN 20 MG TAB PO SCH (21:00)
[2018-12-18 03:18] VITALS: RESP 18
[2018-12-18] MEDS: COLCHICINE 0.6 MG EACH PO SCH (05:54)
--- NOTE | 2018-12-18 07:35 | P.DS ---
Providers Attending physician: Nghia Mejia Primary care physician: [facility] Course: Patient is doing well. He does of sore throat for 2 chest discomfort today. Vitals are stable no dizziness lightheadedness for palpitations On examination blood pressure 118/76. His mercury pulse rate in the 50s and 60s normal respirations afebrile 98.5F Normal heart sounds normal S1 normal S2 no murmur no gallop. Breath sounds are reduced bilaterally with rhonchorous breath sounds bilaterally. He is a smoker Abdomen soft nontender Right groin Is bruised there is no hematoma in either groin did sutures were removed to lie next and is warm no edema Twelve-lead ECG shows sinus mechanism normal [place] narrow QRS left axis deviation arrhythmias inversions V4-V6 Impression Symptomatic persistent atrial fibrillation refractory to prior therapy Pulmonary vein isolation with cryoablation, linear ablation along the left atrial roof Cardio myopathy, nonischemic Regular alcohol use Current smoker Plan Colchicine 0.6 g twice daily for 4 days Continue ELIQUIS uninterrupted Continue all other cardiac medications Discharge home at 4 PM if his grandson stable vitals are stable and follow-up with dr. urbina/nurse practitioner within 1-2 weeks for a groin check Complete abstinence from alcohol Cessation of tobacco use Patient Condition at Discharge: Stable Plan - Discharge Summary Discharge Rx Participant: No New Discharge Prescriptions: New Colchicine [Colcrys] 0.6 mg PO BID #8 tablet Continue Atorvastatin [Lipitor] 20 mg PO HS Albuterol Inhaler [Ventolin Hfa Inhaler] 1 - 2 puff INHALATION Q6HR PRN #1 inhaler PRN Reason: Wheezing Apixaban [Eliquis] 5 mg PO BID #60 tab Furosemide [Lasix] 20 mg PO DAILY #30 tab Metoprolol Tartrate [Lopressor] 25 mg PO BID #60 tab Spironolactone [Aldactone] 25 mg PO DAILY #30 tab Lisinopril [Zestril] 5 mg PO BID #180 tab Discharge Medication List Atorvastatin [Lipitor] 20 mg PO HS 08/15/18 [History] Albuterol Inhaler [Ventolin Hfa Inhaler] 1 - 2 puff INHALATION Q6HR PRN #1 inhaler 08/17/18 [Rx] Apixaban [Eliquis] 5 mg PO BID #60 tab 08/17/18 [Rx] Furosemide [Lasix] 20 mg PO DAILY #30 tab 08/17/18 [Rx] Metoprolol Tartrate [Lopressor] 25 mg PO BID #60 tab 08/17/18 [Rx] Spironolactone [Aldactone] 25 mg PO DAILY #30 tab 08/17/18 [Rx] Lisinopril [Zestril] 5 mg PO BID #180 tab 09/02/18 [Rx] Colchicine [Colcrys] 0.6 mg PO BID #8 tablet 12/17/18 [Rx] Follow up Appointment(s)/Referral(s): Elva Urbina MD [STAFF PHYSICIAN] - 2 Weeks (Follow Dr. Urbina/nose practitioner Tiff within one to 2 weeks Colchicine 0.6 g twice daily for 4 days then stop Continue ELIQUIS continue all other cardiac medications) Activity/Diet/Wound Care/Special Instructions: Post EP study - Ablation instructions 1. Keep access sites dry for 2 days. 2. No heavy lifting or straining for 2 days. 3. Avoid bending the hips repeatedly for 2 days. 4. You may go up and down stairs slowly Call if the following is noted 1. Bleeding, increasing swelling or pain at the access sites. 2. Increasing chest discomfort, especially upon taking a deep breath. 3. Increasing shortness of breath, at rest or with exertion. 4. Undue cough / phlegm 5. Difficulty or pain while swallowing. 6. Pain or change in color in the extremities. 7. Fever, chills, rigors. 8. Increasing headache or neurologic symptoms. 9. Dizziness, fainting, palpitations Continue all current medications Continue ELIQUIS uninterrupted Colchicine 0.6 mg twice daily for 4 days Discharge Disposition: HOME SELF-CARE
--- NOTE | 2018-12-18 07:39 | P.PRLE ---
RE: Michael Rushing Dear Dr. Alice Rodriguez underwent successful isolation of all 4 pulmonary veins as well as ablation along the left atrial roof, without any acute complications However he remained in atrial fibrillation and therefore underwent electrical cardioversion after this. At this time asked him to abstain from alcohol completely and hopefully this will also help with his cardio myopathy. He's been instructed to continue all his cardio mapped medications as well as ELIQUIS. Hopefully this results in significant reduction in A. fib episodes Thank you for entrusting me with the care of the patient Warm regards Sincerely Nghia Mejia
[2018-12-18] MEDS: SODIUM CHLORIDE 0.9% 1,000 ML IV SCH (07:58)
[2018-12-18] MEDS ORDERED: SPIRONOLACTONE 25 MG TAB PO SCH (09:00)
[2018-12-18] MEDS ORDERED: FUROSEMIDE 20 MG TAB PO SCH (09:00)
[2018-12-18] MEDS: LISINOPRIL 5 MG TAB PO SCH (09:08)
[2018-12-18] MEDS: METOPROLOL TARTRATE 25 MG TAB PO SCH (09:08)
[2018-12-18] MEDS: APIXABAN 5 MG TAB PO SCH (09:08)
[2018-12-18 12:50] VITALS: BP 127/78; PULSE 58; TEMP 98.6
== END 2018-12-18 16:46 | disposition home or self-care (01) ==
LOC: CATHEP 07:04 → 1SOBS 11:06 → CATHEP 12-18 16:46
PROVIDERS: ATTEND Internal Medicine Clinical Cardiac Electrophysiology
DX: I48.1 Persistent atrial fibrillation (principal); F10.10 Alcohol abuse, uncomplicated; Z79.01 Long term (current) use of anticoagulants; Z79.899 Other long term (current) drug therapy; F17.210 Nicotine dependence, cigarettes, uncomplicated; Z23 Encounter for immunization; E78.5 Hyperlipidemia, unspecified; I10 Essential (primary) hypertension; Z82.49 Family history of ischemic heart disease and other diseases of the circulatory system; Z88.6 Allergy status to analgesic agent; Z91.018 Allergy to other foods
CPT/HCPCS: 94640; 85347; 92960; 93662; 93609; 93656; 93657; 90732; 90686; C1769 ×4; C1894 ×3; C1730 ×2; C1759; C1893; C1733; C1766; G0008; G0009; J2250; J1644 ×2; J2001; J3010; J0131; J2370; J0330; J2704; Q9967

== ENCOUNTER → 2020-10-27 | Outpatient (CLI) | payer OTHER ==
[2020-10-27 16:10] LABS: HGB 15.3 gm/dL (13.0-17.5); MCH 29.9 pg (25.0-35.0); MCHC 32.5 g/dL (31.0-37.0); MCV 91.9 fL (80.0-100.0); Mean Platelet Volume 7.4; Platelet Count 208 k/uL (150-450); RBC 5.11 m/uL (4.30-5.90); RDW 12.7 % (11.5-15.5); WBC 5.8 k/uL (3.8-10.6)
[2020-10-28 03:14] LABS: African American GFR (CKD) 85.9 (60.0-200.0); Non-African American GFR(CKD) 74.1 (60.0-200.0); Potassium 4.9 mmol/L (3.5-5.5)
== END | disposition home or self-care (01) ==
LOC: LABWHC1 15:34
PROVIDERS: ATTEND Internal Medicine Interventional Cardiology
DX: Z01.818 Encounter for other preprocedural examination (principal); I48.3 Typical atrial flutter
CPT/HCPCS: 36415; 80051; 82565; 84520; 85027

== ENCOUNTER → 2020-11-05 | Day surgery (SDC) | payer OTHER ==
[2020-11-04 08:40] VITALS: BMI 29.2
[~2020-11-05] MED LIST changes: +APIXABAN 5 MG TAB PO SCH; +ATORVASTATIN 20 MG TAB PO SCH; +FUROSEMIDE 20 MG TAB PO SCH; +LIDOCAINE 1% INJ 10MG/ML (20 ML MDV) ONE; +METOPROLOL TARTRATE 25 MG TAB PO SCH; +PROPOFOL 10 MG/ML 20 ML VIAL IV ONE; +SPIRONOLACTONE 25 MG TAB PO SCH
[2020-11-05 08:30] VITALS: RESP 16
[2020-11-05 09:03] VITALS: TEMP 98
--- NOTE | 2020-11-05 09:56 | CE ---
CARDIAC ELECTROPHYSIOLOGY REPORT CARDIOVERSION PROCEDURE NOTE: INDICATION: Atrial flutter. PROCEDURE: After explaining the procedure to the patient, its risks and the complications, his blood pressure, heart rate, O2 saturation was monitored. After obtaining sedated state by the anesthesia department, a synchronized biphasic cardioversion using 200 joules was performed with confucianist of normal sinus rhythm. There was no immediate complications. WYATT / RASHEL: [id number] /
--- NOTE | 2020-11-05 10:46 | ECHOT ---
TRANSESOPHAGEAL ECHOCARDIOGRAM INDICATION: Evaluation of the left atrial appendage. PROCEDURE: After explaining the procedure to the patient, its risks and the complications, his blood pressure, heart rate, O2 saturation was monitored. The throat was sprayed with Cetacaine. He received sedation per Anesthesia Department. The probe was introduced in the esophagus without difficulty. Images were obtained. Following that, the probe was removed. There was no immediate complication. FINDINGS: Biatrial enlargement was noted. Left atrial appendage is normal. Left ventricular size is normal. There is global hypokinesis with ejection fraction 40% to 45%. The aortic valve revealed mild fibrocalcific change of the aortic cusp with preserved opening. Mild mitral annulus calcification was noted. Tricuspid valve is normal. Descending thoracic aorta appears to be normal. No pericardial effusion was noted. Contrast bubble study revealed no evidence of shunting across the interatrial septum. Doppler pulse wave and color Doppler obtained and revealed a pulse wave and color Doppler obtained and revealed a mild mitral and tricuspid regurgitation. There was no shunting by color Doppler study. CONCLUSION: 1. Biatrial enlargement with normal appearance left atrial appendage. 2. Normal left ventricular size with mild to moderate global hypokinesis. 3. Mild mitral and tricuspid regurgitation. 4. Normal appearance of the descending thoracic aorta. MMODL / IJN: [id number] /
[2020-11-05 10:53] VITALS: BP 123/76; PULSE 60
== END | disposition home or self-care (01) ==
LOC: CATHCVL 07:30
PROVIDERS: ATTEND Internal Medicine Interventional Cardiology
DX: I48.3 Typical atrial flutter (principal); I08.1 Rheumatic disorders of both mitral and tricuspid valves; I10 Essential (primary) hypertension; I48.19 Other persistent atrial fibrillation; I25.10 Atherosclerotic heart disease of native coronary artery without angina pectoris; I42.8 Other cardiomyopathies; E78.2 Mixed hyperlipidemia; G47.33 Obstructive sleep apnea (adult) (pediatric); J44.9 Chronic obstructive pulmonary disease, unspecified; F17.210 Nicotine dependence, cigarettes, uncomplicated; Z82.49 Family history of ischemic heart disease and other diseases of the circulatory system; Z79.899 Other long term (current) drug therapy; Z79.01 Long term (current) use of anticoagulants; Z88.6 Allergy status to analgesic agent; Z91.018 Allergy to other foods
CPT/HCPCS: 93312; 93320; 93325; 92960; J2001; J2704

== ENCOUNTER → 2021-05-23 | Outpatient (CLI) | payer OTHER ==
[2021-05-23 19:22] LABS: African American GFR (CKD) 109.5 (60.0-200.0); Albumin 4.2 g/dL (3.80-4.90); Albumin/Globulin Ratio 1.62 (1.60-3.17); Anion Gap 4.3 mmol/L (4.00-12.00); BUN/Creat Ratio 23.33 Ratio (12.00-20.00); Calcium 8.9 mg/dL (8.7-10.3); Carbon Dioxide 27.7 mmol/L (21.6-31.8); Globulin 2.6 g/dL (1.6-3.3); Non-African American GFR(CKD) 94.5 (60.0-200.0); Potassium 5.2 mmol/L (3.5-5.5); Total Bilirubin 0.2 mg/dL (0.2-1.2); Total Protein 6.8 g/dL (6.2-8.2)
== END | disposition home or self-care (01) ==
LOC: LABWHC1 13:28
PROVIDERS: ATTEND Internal Medicine Interventional Cardiology
DX: I48.3 Typical atrial flutter (principal)
CPT/HCPCS: 36415; 80053; 84443